=== PATIENT | male | born 1995 | race Caucasian/White ===

== ENCOUNTER 2018-06-14 19:47 | Emergency (ER) | payer OTHER ==
[2018-06-14] MEDS ORDERED: LORazepam 2 MG/ML INJ IV STA (19:58)
[2018-06-14] MEDS ORDERED: SODIUM CHLORIDE 0.9% 1,000 ML IV STA ×2 (19:58)
[2018-06-14 20:19] LABS: Basophils % (A) 0 %; Eosinophils # (A) 0.2 k/uL (0-0.7); Eosinophils % (A) 2 %; HCT 44.7 % (39.0-53.0); HGB 15.5 gm/dL (13.0-17.5); Lymphocytes # (A) 2.2 k/uL (1.0-4.8); Lymphocytes % (A) 21 %; MCH 29.2 pg (25.0-35.0); MCHC 34.7 g/dL (31.0-37.0); Mean Platelet Volume 7.5; Monocytes # (A) 0.7 k/uL (0-1.0); Monocytes % (A) 7 %; Neutrophils # (A) 7.3 k/uL (1.3-7.7); Neutrophils % (A) 69 %; Platelet Count 264 k/uL (150-450); RBC 5.32 m/uL (4.30-5.90); RDW 12.9 % (11.5-15.5); WBC 10.6 k/uL (3.8-10.6)
[2018-06-14 20:29] LABS: INR 1.2 (<1.2); Partial Thromboplastin Time 22.6 sec (22.0-30.0); Prothrombin Time 11.4 sec (9.0-12.0)
[2018-06-14 20:40] LABS: Creatine Kinase 47 U/L (55-170)
[2018-06-14 20:43] LABS: ALT 29 U/L (21-72); AST 20 U/L (17-59); Albumin 4.3 g/dL (3.5-5.0); Alkaline Phosphatase 76 U/L (38-126); Anion Gap 12 mmol/L; Blood Urea Nitrogen 12 mg/dL (9-20); Calcium 9.6 mg/dL (8.4-10.2); Carbon Dioxide 24 mmol/L (22-30); Chloride 103 mmol/L (98-107); Glucose 114 mg/dL (74-99); Magnesium 1.7 mg/dL (1.6-2.3); Potassium 3.1 mmol/L (3.5-5.1); Sodium 139 mmol/L (137-145); Total Bilirubin 0.4 mg/dL (0.2-1.3); Total Protein 6.9 g/dL (6.3-8.2)
[2018-06-14 20:53] LABS: Creatine Kinase MB <0.2 ng/mL (0.0-2.4); Troponin I <0.012 ng/mL (0.000-0.034)
--- NOTE | 2018-06-14 21:04 | XR ---
EXAMINATION TYPE: XR chest 2V DATE OF EXAM: 06/14/2018 COMPARISON: NONE HISTORY: Chest discomfort and dysrhythmia TECHNIQUE: Frontal and lateral views of the chest are obtained. FINDINGS: Heart and mediastinum are normal. Lungs are clear. Diaphragm is normal. Bony thorax appear s normal. IMPRESSION: Normal chest
--- NOTE | 2018-06-14 21:07 | ED ---
Psych HPI - General Source: patient, RN notes reviewed Mode of arrival: EMS - History of Present Illness MD Complaint: suicidal ideation, feels depressed, other <Eric Beckham - Last Filed: 06/14/18 21:33> <Rickey Poon - Last Filed: 06/15/18 00:55> - General Chief Complaint: Psychiatric Symptoms Stated Complaint: CHEST DISCOMFORT Time Seen by Provider: 06/14/18 19:47 - History of Present Illness Initial Comments: This is a 22-year-old male was brought in by EMS originally for an elevated heart rate chest pain and generalized numbness state he had pain to his chest and neck area 89/10 severity this occurred over the past couple hours after drinking a monster energy drink which she has not had for a while. Patient originally denied any other drug or alcohol use. He does apparently have a history of anxiety. After arrival here he stated he was suicidal and did have a plan and apparently has access to firearms. (Eric Beckham) - Related Data Home Medications Medication Instructions Recorded Confirmed Adrenal Complex Supplement 1 tab PO DAILY 06/14/18 06/14/18 Cholecalciferol [Vitamin D3] 1,000 unit PO DAILY 06/14/18 06/14/18 Folic Acid 0.8 mg PO DAILY 06/14/18 06/14/18 Minocycline HCl [Minocycline HCl 65 mg PO DAILY 06/14/18 06/14/18 ER] Minplex B Supplement (Unknown) 1 tab PO DAILY 06/14/18 06/14/18 Multivitamin,Therapeutic [Thera] 1 tab PO DAILY 06/14/18 06/14/18 Allergies Allergy/AdvReac Type Severity Reaction Status Date / Time Penicillins Allergy Unknown Verified 06/14/18 21:00 Childhood Review of Systems ROS Other: All systems not noted in ROS Statement are negative. <Eric Beckham - Last Filed: 06/14/18 21:33> ROS Other: All systems not noted in ROS Statement are negative. <Rickey Poon - Last Filed: 06/15/18 00:55> ROS Statement: Those systems with pertinent positive or pertinent negative responses have been documented in the HPI. Past Medical History Past Medical History: Seizure Disorder Additional Past Medical History / Comment(s): seizure as a child, last approx 11 y/o Past Surgical History: No Surgical Hx Reported Past Psychological History: Anxiety, Depression Smoking Status: Never smoker Past Alcohol Use History: None Reported Past Drug Use History: None Reported <Eric Beckham - Last Filed: 06/14/18 21:33> General Exam Limitations: no limitations General appearance: alert, anxious Head exam: Present: atraumatic, normocephalic, normal inspection Eye exam: Present: normal appearance, PERRL, EOMI. Absent: scleral icterus, conjunctival injection, periorbital swelling ENT exam: Present: normal exam, mucous membranes moist Neck exam: Present: normal inspection. Absent: tenderness, meningismus, lymphadenopathy Respiratory exam: Present: normal lung sounds bilaterally. Absent: respiratory distress, wheezes, rales, rhonchi, stridor Cardiovascular Exam: Present: normal rhythm, tachycardia, normal heart sounds. Absent: systolic murmur, diastolic murmur, rubs, gallop, clicks GI/Abdominal exam: Present: soft, normal bowel sounds. Absent: distended, tenderness, guarding, rebound, rigid Extremities exam: Present: normal inspection, full ROM, normal capillary refill. Absent: tenderness, pedal edema, joint swelling, calf tenderness Back exam: Present: normal inspection Neurological exam: Present: alert, oriented X3, CN II-XII intact Psychiatric exam: Present: depressed, flat affect, suicidal ideation Skin exam: Present: warm, dry, intact, normal color. Absent: rash <Eric Beckham - Last Filed: 06/14/18 21:33> <Rickey Poon - Last Filed: 06/15/18 00:55> - General Exam Comments Initial Comments: This is a well-developed asthenic appearing male who is awake alert oriented 3 (Eric Beckham) Course <Eric Beckham - Last Filed: 06/14/18 21:33> <Rickey Poon - Last Filed: 06/15/18 00:55> Vital Signs 06/14/18 06/14/18 06/14/18 19:54 20:58 22:29 Temperature 99.0 F Pulse Rate 110 H 99 97 Respiratory 16 16 16 Rate Blood Pressure 141/78 138/96 132/72 O2 Sat by Pulse 100 98 98 Oximetry 06/14/18 23:52 Temperature Pulse Rate 96 Respiratory 18 Rate Blood Pressure 123/62 O2 Sat by Pulse 97 Oximetry - Reevaluation(s) Reevaluation #1: 06/14/18 21:33 The patient's care is endorsed to Dr. Poon at our shift change (Eric Beckham) Medical Decision Making - Lab Data Result diagrams: 06/14/18 20:05 06/14/18 20:05 - EKG Data -: EKG Interpreted by Me EKG shows normal: sinus rhythm (Sinus tachycardia rate 127 MD interval 128 QRS duration 126 daily since QTC of 44/587 right axis deviation nonspecific interventricular block) <Eric Beckham - Last Filed: 06/14/18 21:33> - Lab Data Result diagrams: 06/14/18 20:05 06/14/18 20:05 <Rickey Poon - Last Filed: 06/15/18 00:55> - Medical Decision Making I receive this patient has a sign out. He has not been seen by behavioral health and they have arranged a follow-up plan with [facility]. Patient is now lu for safety. Family has eliminated access to any firearms. They'll return should there be any difficulty with this plan. (Rickey Poon) - Lab Data Lab Results 06/14/18 06/14/18 06/14/18 Range/Units 20:05 20:05 20:05 WBC 10.6 (3.8-10.6) k/uL RBC 5.32 (4.30-5.90) m/uL Hgb 15.5 (13.0-17.5) gm/dL Hct 44.7 (39.0-53.0) % MCV 84.0 (80.0-100.0) fL MCH 29.2 (25.0-35.0) pg MCHC 34.7 (31.0-37.0) g/dL RDW 12.9 (11.5-15.5) % Plt Count 264 (150-450) k/uL Neutrophils % 69 % Lymphocytes % 21 % Monocytes % 7 % Eosinophils % 2 % Basophils % 0 % Neutrophils # 7.3 (1.3-7.7) k/uL Lymphocytes # 2.2 (1.0-4.8) k/uL Monocytes # 0.7 (0-1.0) k/uL Eosinophils # 0.2 (0-0.7) k/uL Basophils # 0.0 (0-0.2) k/uL PT (9.0-12.0) sec INR (<1.2) APTT (22.0-30.0) sec Sodium 139 (137-145) mmol/L Potassium 3.1 L (3.5-5.1) mmol/L Chloride 103 (98-107) mmol/L Carbon Dioxide 24 (22-30) mmol/L Anion Gap 12 mmol/L BUN 12 (9-20) mg/dL Creatinine 0.87 (0.66-1.25) mg/dL Est GFR (CKD-EPI)AfAm >90 (>60 ml/min/1.73 sqM) Est GFR (CKD-EPI)NonAf >90 (>60 ml/min/1.73 sqM) Glucose 114 H (74-99) mg/dL Calcium 9.6 (8.4-10.2) mg/dL Magnesium 1.7 (1.6-2.3) mg/dL Total Bilirubin 0.4 (0.2-1.3) mg/dL AST 20 (17-59) U/L ALT 29 (21-72) U/L Alkaline Phosphatase 76 (38-126) U/L Total Creatine Kinase 47 L (55-170) U/L CK-MB (CK-2) <0.2 (0.0-2.4) ng/mL CK-MB (CK-2) Rel Index Troponin I <0.012 (0.000-0.034) ng/mL Total Protein 6.9 (6.3-8.2) g/dL Albumin 4.3 (3.5-5.0) g/dL TSH 2.580 (0.465-4.680) mIU/L Salicylates mg/dL Urine Opiates Screen (NotDetected) Ur Oxycodone Screen (NotDetected) Urine Methadone Screen (NotDetected) Ur Propoxyphene Screen (NotDetected) Acetaminophen ug/mL Ur Barbiturates Screen (NotDetected) U Tricyclic Antidepress (NotDetected) Ur Phencyclidine Scrn (NotDetected) Ur Amphetamines Screen (NotDetected) U Methamphetamines Scrn (NotDetected) U Benzodiazepines Scrn (NotDetected) Urine Cocaine Screen (NotDetected) U Marijuana (THC) Screen (NotDetected) 08/14/18 08/14/18 08/14/18 Range/Units 20:05 21:20 21:20 WBC (3.8-10.6) k/uL RBC (4.30-5.90) m/uL Hgb (13.0-17.5) gm/dL Hct (39.0-53.0) % MCV (80.0-100.0) fL MCH (25.0-35.0) pg MCHC (31.0-37.0) g/dL RDW (11.5-15.5) % Plt Count (150-450) k/uL Neutrophils % % Lymphocytes % % Monocytes % % Eosinophils % % Basophils % % Neutrophils # (1.3-7.7) k/uL Lymphocytes # (1.0-4.8) k/uL Monocytes # (0-1.0) k/uL Eosinophils # (0-0.7) k/uL Basophils # (0-0.2) k/uL PT 11.4 (9.0-12.0) sec INR 1.2 H (<1.2) APTT 22.6 (22.0-30.0) sec Sodium (137-145) mmol/L Potassium (3.5-5.1) mmol/L Chloride (98-107) mmol/L Carbon Dioxide (22-30) mmol/L Anion Gap mmol/L BUN (9-20) mg/dL Creatinine (0.66-1.25) mg/dL Est GFR (CKD-EPI)AfAm (>60 ml/min/1.73 sqM) Est GFR (CKD-EPI)NonAf (>60 ml/min/1.73 sqM) Glucose (74-99) mg/dL Calcium (8.4-10.2) mg/dL Magnesium (1.6-2.3) mg/dL Total Bilirubin (0.2-1.3) mg/dL AST (17-59) U/L ALT (21-72) U/L Alkaline Phosphatase (38-126) U/L Total Creatine Kinase (55-170) U/L CK-MB (CK-2) (0.0-2.4) ng/mL CK-MB (CK-2) Rel Index Troponin I (0.000-0.034) ng/mL Total Protein (6.3-8.2) g/dL Albumin (3.5-5.0) g/dL TSH (0.465-4.680) mIU/L Salicylates 3.4 mg/dL Urine Opiates Screen Not Detected (NotDetected) Ur Oxycodone Screen Not Detected (NotDetected) Urine Methadone Screen Not Detected (NotDetected) Ur Propoxyphene Screen Not Detected (NotDetected) Acetaminophen <10.0 ug/mL Ur Barbiturates Screen Not Detected (NotDetected) U Tricyclic Antidepress Not Detected (NotDetected) Ur Phencyclidine Scrn Not Detected (NotDetected) Ur Amphetamines Screen Not Detected (NotDetected) U Methamphetamines Scrn Not Detected (NotDetected) U Benzodiazepines Scrn Not Detected (NotDetected) Urine Cocaine Screen Not Detected (NotDetected) U Marijuana (THC) Screen Not Detected (NotDetected) Disposition <Eric Beckham - Last Filed: 06/14/18 21:33> Is patient prescribed a controlled substance at d/c from ED?: No <Rickey Poon - Last Filed: 06/15/18 00:55> Clinical Impression: Mood disorder Disposition: HOME SELF-CARE Condition: Good Instructions: Anxiety (ED), Mood Disorders (ED) Referrals: None,Stated [Primary Care Provider] - 1-2 days
[2018-06-14 21:54] LABS: Acetaminophen <10.0 ug/mL; Salicylate 3.4 mg/dL
[2018-06-14 21:55] LABS: Amphetamine Screen,Urine Not Detected (NotDetected); Barbiturate Screen,Urine Not Detected (NotDetected); Benzodiazepines Screen,Urine Not Detected (NotDetected); Cocaine Screen,Urine Not Detected (NotDetected); Methadone Screen, Urine Not Detected (NotDetected); Opiate Screen,Urine Not Detected (NotDetected); Oxycodone Screen, Urine Not Detected (NotDetected); Phencyclidine Screen,Urine Not Detected (NotDetected); Tricyclic Antidepressant,Urine Not Detected (NotDetected); Urn Cannabinoid Scrn Not Detected (NotDetected)
[2018-06-14] MEDS ORDERED: POTASSIUM CHLORIDE ER 20 MEQ TAB.ER PO STA (22:27)
[2018-06-14 23:54] VITALS: RESP 18
[2018-06-15 01:40] VITALS: BP 122/59; PULSE 84; TEMP 98.3
== END 2018-06-15 01:15 | disposition home or self-care (01) ==
LOC: EC 19:47
DX: F39 Unspecified mood [affective] disorder (principal); R07.89 Other chest pain; R45.851 Suicidal ideations; F32.9 Major depressive disorder, single episode, unspecified; Z79.899 Other long term (current) drug therapy; Z88.0 Allergy status to penicillin
CPT/HCPCS: 82075; 36415; 93005; 80053; 82550; 82553; 83735; 84443; 84484; 85025; 85610; 85730; 80306; 83520 ×2; 71046; 99285; 96374; 96361 ×4; J2060